=== PATIENT | female | born 1970 | race Caucasian/White ===

== ENCOUNTER 2021-04-11 06:31 | Day surgery (SDC) | payer OTHER, SELFPAY ==
[~2021-04-11] VITALS: Ht 157.5 cm; Wt 75.7 kg
[2021-04-11] MEDS ORDERED: LIDOCAINE 2% 100 MG/5 ML UJET TP ONE ×2 (07:37→08:30)
[2021-04-11] MEDS ORDERED: MIDAZOLAM 5 MG/5 ML VIAL ONE (07:37)
[2021-04-11] MEDS ORDERED: fentaNYL citrate 0.05 MG/ML VIAL ONE (07:37)
[2021-04-11] MEDS ORDERED: fentaNYL citrate 0.05 MG/ML VIAL IVP ONE (08:30)
== END 2021-04-11 09:15 | disposition home or self-care (01) ==
LOC: MDS 06:31 → MMU 06:33 → MDS 09:15
PROVIDERS: ATTEND Internal Medicine Gastroenterology
DX: Z12.11 Encounter for screening for malignant neoplasm of colon (principal); Z80.0 Family history of malignant neoplasm of digestive organs; Z90.12 Acquired absence of left breast and nipple; Z20.828 Contact with and (suspected) exposure to other viral communicable diseases
CPT/HCPCS: 45378; J3010; U0003; J2250